=== PATIENT | male | born 1950 | race Hispanic/Latino ===

== ENCOUNTER 2018-09-21 06:27 | Observation (INO) | payer MEDICARE, OTHER ==
[2018-09-20 11:19] LABS: BASOPHILS % 0.5 % (0.0-1.0); EOSINOPHILS # (AUTO) 0.1 (0.0-0.4); EOSINOPHILS % 1.2 % (0.0-6.0); HEMATOCRIT 40.8 % (38.2-49.6); HEMOGLOBIN 13.9 g/dL (14.0-18.0); LYMPHOCYTES # (AUTO) 2.3 (1.0-3.2); LYMPHOCYTES % 39.2 % (18.0-39.1); MEAN CORPUSCULAR HEMOGLOBIN 32.6 pg (28-32); MEAN CORPUSCULAR HGB CONC 34.1 g/dL (31-35); MEAN CORPUSCULAR VOLUME 95.8 fL (81-99); MONOCYTES # (AUTO) 0.5 (0.2-0.8); MONOCYTES % 7.8 % (4.4-11.3); PLATELET COUNT 194 x10e3/uL (140-360); RED BLOOD COUNT 4.26 x10e6/uL (4.3-5.7); RED CELL DISTRIBUTION WIDTH 12.8 % (11.7-14.4)
[2018-09-20 11:27] LABS: INR 0.9
[2018-09-20 11:29] LABS: PARTIAL THROMBOPLASTIN TIME 31.7 seconds (23.8-35.5)
[2018-09-20 11:38] LABS: ALANINE AMINOTRANSFERASE 17 IU/L (0-55); ALBUMIN 4.1 g/dL (3.5-5.0); ALBUMIN/GLOBULIN RATIO 1.5 (0.8-2.0); ALKALINE PHOSPHATASE 61 IU/L (40-150); ANION GAP 12.9 mmol/L (8-16); BLOOD UREA NITROGEN 12 mg/dL (7-26); BUN/CREATININE RATIO 13 (6-25); CALCIUM 9.5 mg/dL (8.4-10.2); CARBON DIOXIDE 26 mmol/L (22-29); CHLORIDE 101 mmol/L (98-107); CREATININE, SERUM 0.96 mg/dL (0.72-1.25); EST GLOMERULAR FILTRATION RATE > 60 ML/MIN (60-); GLUCOSE 93 mg/dL (74-118); POTASSIUM 4.9 mmol/L (3.5-5.1); SODIUM 135 mmol/L (136-145)
--- NOTE | 2018-09-20 12:44 | Diagnostic Imaging Report ---
EXAMINATION: CHEST 2 VIEWS INDICATION: Pre-op radiograph. COMPARISON: None FINDINGS: TUBES and LINES: None. LUNGS: Lungs are well inflated. Lungs are clear. There is no evidence of pneumonia or pulmonary edema. PLEURA: No pleural effusion or pneumothorax. Mild biapical pleural parenchymal opacity. HEART AND MEDIASTINUM: The cardiomediastinal silhouette is unremarkable. BONES AND SOFT TISSUES: No acute osseous lesion. Soft tissues are unremarkable. UPPER ABDOMEN: No free air under the diaphragm. IMPRESSION: No acute radiographic abnormality. Signed by: Dr. Arjun Brown MD on 09/20/2018 12:41 PM
[~2018-09-21] VITALS: Ht 170.2 cm; Wt 68.9 kg
[2018-09-21] VITALS (33 sets, daily range): BP systolic 74–146; BP diastolic 56–87
[~2018-09-21 06:27] MED LIST: [UNRECOGNIZED DRUG - OTHER] PO; [UNRECOGNIZED DRUG - OTHER] PO; [UNRECOGNIZED DRUG - OTHER] PO; [UNRECOGNIZED DRUG - OTHER] PO
--- OUTSIDE RECORDS SUMMARY | 2018-09-21 06:29 | XMS REPORT ---
Author [facility] Address Unknown Phone Unavailable Care Team Providers Care Plumbing Designer Name Role Phone ELBA PARRA Unavailable Unavailable Problems This patient has no known problems. Allergies, Adverse Reactions, Alerts This patient has no known allergies or adverse reactions. Medications This patient has no known medications. 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 COMPARISON: None FINDINGS: TUBES and LINES: None. LUNGS: Lungs are well inflated. Lungs are clear. There is no evidence of pneumonia or pulmonary edema. PLEURA: No pleural effusion or pneumothorax. Mild biapical pleural parenchymal opacity. HEART AND MEDIASTINUM: The cardiomediastinal silhouette is unremarkable. BONES AND SOFT TISSUES: No acute osseous lesion. Soft tissues are unremarkable. UPPER ABDOMEN: No free air under the diaphragm. IMPRESSION: No acute radiographic abnormality. Signed by: Dr. Shine Campo MD on 09/20/2018 12:41 PM Dictated By: SHINE CAMPO MD 1241 Transcribed By: ELIO on 09/20/18 1241 COPY TO: ELBA PARRA MD
[2018-09-21] MEDS ORDERED: MIDAZOLAM HCL 2 MG/2 ML VIAL ONE (07:22)
[2018-09-21] MEDS ORDERED: HEPARIN SOD/SOD CHLORIDE 2,000 ML ONE (07:23)
[2018-09-21] MEDS ORDERED: FENTANYL CITRATE/PF 100MCG/2 ML INJ ONE (07:23)
[2018-09-21] MEDS ORDERED: LIDOCAINE HCL 1% LOCAL INJ 20 ML VIAL ONE (07:23)
[2018-09-21] MEDS ORDERED: IOPAMIDOL 370 MG/ML 200 ML INFUS..BTL INJ ONE (07:23)
[2018-09-21] MEDS ORDERED: SODIUM CHLORIDE 0.9% 1000ML 1,000 ML ONE (07:23)
[2018-09-21] MEDS ORDERED: ATROPINE SULFATE 0.1 MG/ML 10ML SYR ONE (07:51)
--- NOTE | 2018-09-21 08:56 | NUR ---
biomass technician notified via phone of EKG order.
--- NOTE | 2018-09-21 08:57 | NUR ---
Kitchen notified via phone of cardiac diet order and patient needs finger foods tray.
--- NOTE | 2018-09-21 09:05 | Operative Report ---
DATE OF PROCEDURE: September 21, 2018 PROCEDURES PERFORMED 1. Left heart catheterization. 2. Selective coronary angiogram. 3. Left ventriculogram. INDICATIONS: Angina and abnormal stress test. ANESTHESIA: 2% lidocaine for local anesthesia. Fentanyl and Versed for conscious sedation. BLOOD LOSS: 2 mL. DESCRIPTION OF PROCEDURE: After informed consent, the patient was brought to the cardiac catheterization laboratory and placed on the table. Both groins were painted and draped in a sterile fashion. Lidocaine was injected in the right groin for local anesthesia. Right femoral artery was accessed by Seldinger technique, and a 5-Guinean sheath was placed in the right femoral artery. Left main artery was cannulated using a JL4 5-Guinean catheter. Coronary angiogram was performed. Images were obtained in multiple views. Right coronary artery was cannulated using a 3DRC 5-[place]inean catheter. Coronary angiogram was performed and images obtained in multiple views. LV-gram was performed using a pigtail catheter. The arteriotomy site was closed using a Vascade closure device. Prior to that, a sheathogram was performed. Patient tolerated the procedure without any complications. REPORT 1. Left main: Normal caliber with luminal irregularities. 2. Left anterior descending: Normal caliber. It is diffusely diseased. There is a 70% vzxhkk-[id number]-uppz lesion in its proximal segment and then a long 70% lesion in its mid segment. The rest of the mid and distal LAD has mild diffuse disease. The 1st diagonal branch has a 70% to 80% proximal lesion. 3. Left circumflex: Narrow caliber vessel, has a 90% proximal lesion. 4. Right coronary artery: Normal caliber. Has a 70% to 80% mid lesion followed by another 99% mid lesion. Distally there is about a 70% lesion. There are some collaterals from the right to the left. 5. LV-gram: Diffuse hypokinesis of the left ventricle is noted. 6. The overall ejection fraction is about 40%. 7. Hemodynamics: Aortic pressure is 131/64. LV pressure is 147/-3. LVEDP is 18. PLAN: Possible CABG. Job#: [id number]
--- NOTE | 2018-09-21 09:15 | NUR ---
0915 Received pt in #9 Identifier x2. ELIAN Ox4 no c/o C DR Rooney severe blockage necessity to transfer to [facility] for surgical consult [facility]. Rt Vascade site dry and intact PPx4 with Doppler at bedside, Md spoke with family any Patient regarding POC. Abdomen soft and non tender denies necessity to defecate or urinate. Left hand iv site w/o s/s infiltration dial flow placed for transfer at 50cchr. Assist with oatmeal breakfast ate small amt. Papers prepared for transfer on chart. Freedom Andrade RN has memorandum of transfer. Denies CP or SOB. slick/RN
--- NOTE | 2018-09-21 10:15 | NUR ---
1015am pt has c/o left side sharp Cp O2 at 2LMN NC applied. Dr Rooney notified by Gautam BACH received orders to continued O2 2lMN and Nitro paste application 1/2 inch applied. remains at bedside Pt states resolving Monitor remain SB w/o ectopics VS stable. 100% Sats.
--- NOTE | 2018-09-21 10:45 | NUR ---
Nitro paste in placed.Denies continued CP or SOB 02 2LMN. call light at bedside with HOB down,brakes locked, side rails up Rass/Selene scores (O/10) Awaiting disposition of Yazidi bed or IMCU bed here. Sinus Romaine, no ectopic Rt vascade site w/o dressing Dry intact no bleeding or hematoma Denies necessity to defecate or urinate. No distress.
--- NOTE | 2018-09-21 10:45 | NUR ---
1045 additional dose Morphine 2mg ivp for cp on left side an dmid sternal sta repeat EKG done djs/Rn
[2018-09-21] MEDS: NITROGLYCERIN 2% OINT 1 GM PKT TOP SCH ×2 (12:00→18:00)
--- NOTE | 2018-09-21 12:15 | NUR ---
1215 Pt reports chest pressure to left side Vs stable Called Md 2mg Morphine Ivp left hand , iv site w/o s/s infiltration. Pt states has some Numbness to face? stoke assessment done with ISREAL Anguiano labor and delivery nurse nurse at bedside. All component negative. Stat Ekg dept ordered and on way. remain at bedside. Now at 1240pm EKG here has no complaints of CP or numbness vs stable O2 at 2LMN awaiting bed deposition. mariaa/RN
[2018-09-21] MEDS ORDERED: MORPHINE SULFATE INJ 4 MG/ML INJ 1ML ONE (12:22)
[2018-09-21] MEDS ORDERED: MORPHINE SULFATE INJ 4 MG/ML INJ 1ML IV PRN (13:15)
--- NOTE | 2018-09-21 14:00 | NUR ---
1400pmCalled Dr Smith notified on ongoing symptomatology. OK to transfer to ICU .Pt with episodes of Numbness to face and hands, Nurse neuro check done and reported to Md and to Dir Cisneros negative initially.IVP 250 Ns and 100cchr iv continued post one time dose 2mg morphine ivp for c/o sternal chest pain radiates to left side. Relieved with intermittent reoccurrence. 1045am nitro-paste 1/[address] Bp dropped initial to 70 systolic and presently 115/66 64 Resp 12 100% 2lnc HR Sinus galina w/o ectopics. with transfer to ICU . Valuables with pt. Handoff to Rosa reese RN Awaiting disposition bed to Jeri for Dr Perez evaluation heart blockage clearance. Copies for ambulance travel on chart. Family and pt aware of POCVs guarded stable. left pt call light at bedside EKG on Brakes loced side rails up. mariaa/ISREAL
--- NOTE | 2018-09-21 19:00 | NUR ---
Report received. Assumed care. Assessment done. See interventions. O2 per NC @ 2L. Sats 99-100%. IV saline locked.
--- NOTE | 2018-09-21 22:00 | NUR ---
Assisted to restroom with to void. Itzel activity well.
[2018-09-22] VITALS (23 sets, daily range): BP systolic 90–126; BP diastolic 57–89
--- NOTE | 2018-09-22 03:30 | NUR ---
Awake. c/o chest pain 12/09. Wants to go to restroom. Advised not to while having chest pain. Medicated with Morphine.
--- NOTE | 2018-09-22 05:29 | NUR ---
SPOKE TO GUILLERMO WITH THE [facility]. PATIENT APPROVAL IS STILL PENDING BED AVAILABILITY. NO BED AT THIS TIME. PER TRANSFER CENTER WILL CALL US WHEN A BED BECOMES AVAILABLE. PM NURSE MADE AWARE OF ALL OF THE ABOVE.
[2018-09-22] MEDS: NITROGLYCERIN 2% OINT 1 GM PKT TOP SCH ×4 (06:27→18:40)
[2018-09-22] MEDS ORDERED: METOPROLOL TARTRATE 25 MG TAB PO SCH (09:00)
[2018-09-22] MEDS ORDERED: ASPIRIN 325 MG TAB PO SCH (09:00)
[2018-09-22] MEDS ORDERED: HEPARIN 25,000 UNIT/D5W 250ML 250 ML IV SCH (09:00)
--- NOTE | 2018-09-22 10:17 | NUR ---
Heparin gtt initiated without loading dose (per Mikey Ilu DRIER FEEDER ;Dr. Rooney) order at 830units/hr (8.3ml/hr). Rate and pump set up initiating verified with a second TREATING ENGINEER. purpose, risks and benefits explained to patient and significant other. Both verbalized understanding of medication gtt.
--- NOTE | 2018-09-22 15:20 | NUR ---
DC PLANNING: DISCUSSED PT IN WALKING ROUNDS. PT IS S/P L HEART CATH 09/21/18 W SEVERE BLOCKAGE TO RCA AND LAD. BEDSIDE RN STATES PT C/O CP LAST NIGHT AND WAS MEDICATED FOR CP. PLAN IS FOR PT TO TRANSFER TO [facility]. TRANSFER IS BEING FOLLOWED BY THE SPICE ROOM WORKER. WILL ASSIST IF NEEDED W TRANSFER.
[2018-09-22 17:35] LABS: BASOPHILS % 0.5 % (0.0-1.0); EOSINOPHILS # (AUTO) 0.1 (0.0-0.4); HEMATOCRIT 34.3 % (38.2-49.6); HEMOGLOBIN 11.5 g/dL (14.0-18.0); LYMPHOCYTES # (AUTO) 2.5 (1.0-3.2); LYMPHOCYTES % 38.9 % (18.0-39.1); MEAN CORPUSCULAR HEMOGLOBIN 32.6 pg (28-32); MEAN CORPUSCULAR HGB CONC 33.5 g/dL (31-35); MEAN CORPUSCULAR VOLUME 97.2 fL (81-99); MONOCYTES # (AUTO) 0.5 (0.2-0.8); MONOCYTES % 7.6 % (4.4-11.3); NEUTROPHILS # (AUTO) 3.3 (2.1-6.9); NEUTROPHILS % 51.7 % (38.7-80.0); PLATELET COUNT 163 x10e3/uL (140-360); RED BLOOD COUNT 3.53 x10e6/uL (4.3-5.7); RED CELL DISTRIBUTION WIDTH 13.1 % (11.7-14.4)
[2018-09-22 17:59] LABS: CREATINE KINASE MB 0.9 ng/mL (0-5.0)
--- NOTE | 2018-09-22 19:00 | NUR ---
Received patient calm in bed, complaining of slight pain at around his scapula but no chest pain. Has a nitro patch on
--- NOTE | 2018-09-22 19:43 | NUR ---
Received a call from Dr Rooney, he wants the carotid Doppler done stat and the preliminary results communicated to him. Charge nurse made aware in communication with the model and pattern supervisor
--- NOTE | 2018-09-22 20:30 | NUR ---
Report called in to [facility], spoke to Dr Toribio Kirk informed of the transfer, okay to do the carotid Doppler at [facility]. Nurse informed of the need for the Doppler preop, to keep the patient NPO from midnight and to stop the heparin pump at midnight
[2018-09-22] MEDS ORDERED: ATORVASTATIN 40 MG TAB PO SCH (21:00)
[2018-09-22] MEDS ORDERED: ATORVASTATIN 20 MG TAB PO SCH (21:00)
--- NOTE | 2018-09-22 22:07 | NUR ---
patient discharged stable.
== END 2018-09-22 22:10 | disposition other institution (70) ==
LOC: CATH LAB 06:27 → CATH LAB V 13:02 → ICU 13:53
DX: I25.119 Atherosclerotic heart disease of native coronary artery with unspecified angina pectoris (principal)
CPT/HCPCS: 36415 ×2; 71046; 80053; 82550; 82553; 84443; 84484; 85025 ×2; 85610; 85730 ×2; 93005 ×2; 93458; C1760; G0378 ×2; J2001; J2250; J2270 ×2; J7030; Q9967